=== PATIENT | female | born 1975 | race Two or more races ===

== ENCOUNTER 2025-03-03 05:49 | Day surgery (SDC) | payer OTHER ==
[2025-02-24 12:57] VITALS: BP 134/90
[2025-02-24 13:06] LABS: BASO % 0.5 % (0.1-1.2); EOS # 0.09 (0.04-0.54); EOS % 1.4 % (0.7-7.0); LYMPH # 2.15 (1.18-3.74); LYMPH % 32.9 % (19.3-53.1); MEAN PLATELET VOLUME 10.50 fl (9.4-12.4); MONO # 0.46 (0.24-0.82); MONO % 7.0 % (4.7-12.5); NEUT # 3.78 (1.56-6.13); NEUT % 57.9 % (34.0-71.1); RED CELL DISTRIBUTION WIDTH 13.2 % (11.6-14.4)
[2025-02-24 13:07] LABS: URINE APPEARANCE Clear; URINE BILIRRUBIN Negative (NEGATIVE); URINE BLOOD Negative; URINE COLOR Yellow; URINE GLUCOSE Negative (NEGATIVE); URINE KETONE Negative (NEGATIVE); URINE LEUKOCYTE Negative; URINE NITRATE Negative; URINE PROTEIN Negative (NEGATIVE); URINE UROBILINOGEN 1.0 E.U./dl
[2025-02-24 13:10] LABS: URINE BACTERIA 2925.4 uL (0.0-1933); URINE EPITHELIAL CELLS 19.8 uL (0.0-38.8); URINE RBC 7.3 uL (0.0-20.8); URINE WBC 28.1 uL (0.0-23.2)
[2025-02-24 13:28] LABS: INR 1.1; URINE CAST 0.58 uL (0.0-1.40)
[2025-02-24 14:06] LABS: ALT/SGPT 21.0 U/L (12-78); AST/SGOT 11.0 U/L (15-37); BILIRUBIN TOTAL 0.86 mg/dL (0.3-1.2); BUN CREA RATIO 14.0 (7.0-25.0); CREATININE SERUM 0.63 mg/dL (0.55-1.02); GFR 100.86; GLOBULINA 3.3 G/DL (2.4-3.5); GLUCOSE FASTING 82.0 mg/dL (65-100); OSMOLALITY SERUM 277.0 MOSM/KG (275-295)
[~2025-03-03] VITALS: Ht 162.6 cm; Wt 70.8 kg
[2025-03-03] MEDS ORDERED: LIDOCAINE HCL 1%/EPINEPHRINE 20ML VIAL IJ ONE (09:15)
[2025-03-03] MEDS ORDERED: HEMOSTATIC MATRIX 1 KIT KIT TOP ONE (09:15)
[2025-03-03] MEDS ORDERED: CEFTRIAXONE SODIUM 2,000 MG VIAL IV ONE (09:15)
[2025-03-03] MEDS ORDERED: DIBUCAINE 30 GM TUBE RECTAL SCH (09:15)
[2025-03-03] MEDS ORDERED: BUPIVACAINE HCL 30 ML VIAL IJ ONE (09:15)
[2025-03-03] MEDS ORDERED: POVIDONE-IODINE 118 ML BOTT TOP ONE (09:15)
[2025-03-03] MEDS ORDERED: METRONIDAZOLE/SODIUM CHLORIDE 500 MG/100 ML PIGGYBACK IV ONE (09:15)
[2025-03-03] MEDS ORDERED: CELECOXIB200 MG PO (13:07)
[2025-03-03] MEDS ORDERED: TRAM1TAB98 PO (13:08)
[2025-03-03] MEDS ORDERED: INTESTINEX680 M1 PO (13:08)
[2025-03-03] MEDS ORDERED: NEURONTIN300 MG PO (13:08)
== END 2025-03-03 14:50 | disposition home or self-care (01) ==
LOC: CIR.AMB 05:49
PROVIDERS: ATTEND Surgery
DX: K62.1 Rectal polyp (principal); K62.82 Dysplasia of anus; A63.0 Anogenital (venereal) warts; Z88.2 Allergy status to sulfonamides